=== PATIENT | male | born 1990 | race African-American/Black ===

== ENCOUNTER 2021-04-29 08:51 | Emergency (ER) | payer OTHER ==
[2021-04-29] MEDS ORDERED: METHYLPREDNISOLONE 125 MG INJ ONE (09:09)
--- NOTE | 2021-04-29 09:23 | EDPHYS ---
Physician Documentation [facility] Name: Thai Rendon Age: 31 yrs Sex: Male : 1990 Arrival Date: 04/29/2021 Time: 08:55 Bed 12 Private MD: Connie Crowell K ED Physician Link Delgado HPI: 04/29 09:18 This 31 yrs old Black Male presents to ER via Ambulatory with complaints of Rash - rn poison oak. 09:18 The patient's rash thought to be caused by Dermatitis. The rash is located on the body rn diffusely. The rash can be described as erythematous, vesicular. Onset: The symptoms/episode began/occurred 1 week(s) ago. Associated signs and symptoms: Pertinent positives: itching, Pertinent negatives: burning sensation, difficulty breathing, fever. Severity of symptoms: At their worst the symptoms were moderate in the emergency department the symptoms are unchanged. It is unknown whether or not the patient has had similar symptoms in the past. The patient has not recently seen a physician. Patient reports exposed to poison oak recently, has been trying [id number] stuff and ointments are not helping. No lesions in eyes or mouth. No shortness of breath. No other exposures that could explain allergic rash.. Historical: - Allergies: 08:59 No Known Allergies; aa5 - PMHx: 08:59 None; aa5 - PSHx: 08:59 None; aa5 - Immunization history:: Client reports receiving the 2nd dose of the Covid vaccine. - Social history:: Smoking status: Patient denies any tobacco usage or history of. - Family history:: not pertinent. - Hospitalizations: : No recent hospitalization is reported. ROS: 09:18 Constitutional: Negative for fever, chills, and weight loss, Eyes: Negative for injury, rn pain, redness, and discharge, Neck: Negative for injury, pain, and swelling, Cardiovascular: Negative for chest pain, palpitations, and edema, Respiratory: Negative for shortness of breath, cough, wheezing, and pleuritic chest pain, Abdomen/GI: Negative for abdominal pain, nausea, vomiting, diarrhea, and constipation, Back: Negative for injury and pain, MS/Extremity: Negative for injury and deformity, Skin: Positive for diffuse rash and itching Neuro: Negative for headache, weakness, numbness, tingling, and seizure. Exam: 09:18 Constitutional: This is a well developed, well nourished patient who is awake, alert, rn and in no acute distress. Head/Face: Normocephalic, atraumatic. Eyes: No lesions or swelling of eyes ENT: No oral lesions or stridor Skin: Warm, dry, diffuse vesicular and erythematous rash over torso and neck as well as extremities. No desquamation. No bullae Vital Signs: 08:58 BP 141 / 99; Pulse 85; Resp 18 S; Temp 98.5(TE); Pulse Ox 99% on R/A; Weight 94.35 kg aa5 (R); Height 5 ft. 8 in. (172.72 cm) (R); 08:58 Body Mass Index 31.63 (94.35 kg, 172.72 cm) aa5 MDM: 09:01 Patient medically screened. rn 09:18 Differential diagnosis: allergic reaction, Poison pooja, poison oak. Data reviewed: vital rn signs, nurses notes, and as a result, I will discharge patient. Counseling: I had a detailed discussion with the patient and/or guardian regarding: the historical points, exam findings, and any diagnostic results supporting the discharge/admit diagnosis, the need for outpatient follow up, to return to the emergency department if symptoms worsen or persist or if there are any questions or concerns that arise at home. Special discussion: I discussed with the patient/guardian in detail that at this point there is no indication for admission to the hospital. It is understood, however, that if the symptoms persist or worsen the patient needs to return immediately for re-evaluation. Administered Medications: 09:13 Drug: SOLU-Medrol (methylPREDNISolone sodium succinate) 125 mg Route: IM; Site: right iw gluteus; 09:30 Follow up: Response: No adverse reaction iw Disposition Summary: 04/29/21 09:22 Discharge Ordered Location: Home rn Problem: new rn Symptoms: have improved rn Condition: Stable rn Diagnosis - Irritant contact dermatitis due to plants, except food - Poison oak rn Followup: rn - With: Private Physician - When: As needed - Reason: Recheck today's complaints, Re-evaluation by your physician Discharge Instructions: - Discharge Summary Sheet rn - Contact Dermatitis rn - Poison [place] Dermatitis rn Forms: - Work release form iw - Medication Reconciliation Form rn - Thank You Letter rn - Antibiotic rn faculty - Prescription Opioid Use rn Prescriptions: - Prednisone 20 mg Oral Tablet - take 1 tablet by ORAL route as directed for 10 days Take 3 tablets by mouth rn daily for 5 days, followed by 2 tablets by mouth daily for 3 days, followed by 1 tablet by mouth daily for 2 days. Total of 10 days.; 23 tablet; Refills: 0, Product Selection Permitted - Hydroxyzine HCl 50 mg Oral Tablet - take 1 tablet by ORAL route every 8 hours As needed; 20 tablet; Refills: 0, rn Product Selection Permitted Signatures: Nevaeh Marina RN RN iw Link Delgado MD MD rn Calderon, Audri, RN RN aa5
--- NOTE | 2021-04-29 09:23 | ER ---
Nurse's Notes [facility] Name: Thai Rendon Age: 31 yrs Sex: Male : 1990 Arrival Date: 04/29/2021 Time: 08:55 Bed 12 Private MD: Connie Crowell K Diagnosis: Irritant contact dermatitis due to plants, except food-Poison oak Presentation: 04/29 08:58 Chief complaint: Patient states: "I got poison oak and it's all over". Coronavirus aa5 screen: At this time, the client does not indicate any symptoms associated with coronavirus-19. Ebola Screen: No symptoms or risks identified at this time. Initial Sepsis Screen: Does the patient meet any 2 criteria? No. Patient's initial sepsis screen is negative. Does the patient have a suspected source of infection? No. Patient's initial sepsis screen is negative. Risk Assessment: Do you want to hurt yourself or someone else? Patient reports no desire to harm self or others. Onset of symptoms was April 2021. 08:58 Method Of Arrival: Ambulatory aa5 08:58 Acuity: SARAH 5 aa5 Historical: - Allergies: 08:59 No Known Allergies; aa5 - PMHx: 08:59 None; aa5 - PSHx: 08:59 None; aa5 - Immunization history:: Client reports receiving the 2nd dose of the Covid vaccine. - Social history:: Smoking status: Patient denies any tobacco usage or history of. - Family history:: not pertinent. - Hospitalizations: : No recent hospitalization is reported. Screenin:15 Abuse screen: Denies threats or abuse. Denies injuries from another. Nutritional iw screening: No deficits noted. Tuberculosis screening: No symptoms or risk factors identified. Fall Risk None identified. Assessment: 09:14 General: Appears in no apparent distress. Behavior is calm, cooperative. Pain: Denies iw pain. Neuro: Level of Consciousness is awake, alert, obeys commands, Oriented to person, place, time, situation, Moves all extremities. Full function. Cardiovascular: Patient's skin is warm and dry. Respiratory: Respiratory effort is even, unlabored, Respiratory pattern is regular, symmetrical. Derm: Rash noted that is Reports itching. Musculoskeletal: Range of motion: intact in all extremities. Vital Signs: 08:58 BP 141 / 99; Pulse 85; Resp 18 S; Temp 98.5(TE); Pulse Ox 99% on R/A; Weight 94.35 kg aa5 (R); Height 5 ft. 8 in. (172.72 cm) (R); 08:58 Body Mass Index 31.63 (94.35 kg, 172.72 cm) aa5 ED Course: 08:55 Patient arrived in ED. am2 08:55 Connie Crowell MD is Private Physician. am2 08:58 Arm band placed on. aa5 08:59 Triage completed. aa5 09:01 Link Delgado MD is Attending Physician. rn 09:14 Nevaeh Marina RN is Primary Nurse. iw 09:16 No provider procedures requiring assistance completed. Patient did not have IV access iw during this emergency room visit. Administered Medications: 09:13 Drug: SOLU-Medrol (methylPREDNISolone sodium succinate) 125 mg Route: IM; Site: right iw gluteus; 09:30 Follow up: Response: No adverse reaction iw Outcome: 09:22 Discharge ordered by . rn 09:43 Patient left the ED. iw Signatures: Nevaeh Marina, RN RN iw Link Delgado MD MD rn Calderon, Audri RN RN aa5 Renae Miner am2 Corrections: (The following items were deleted from the chart) 09:01 08:58 94.35 kg Reported; Height 5 ft. 8 in. Reported; BMI: 31.6; aa5 aa5 09:03 08:58 Pulse 85bpm; Resp 18bpm; Spontaneous; Pulse Ox 99% RA; Temp 98.5F Temporal; 94.35 aa5 kg Reported; Height 5 ft. 8 in. Reported; BMI: 31.6; aa5
[2021-04-29 10:27] VITALS: BP 141/99; TEMP 98.5; O2SAT 99
--- OUTSIDE RECORDS SUMMARY | 2021-05-08 11:10 | XMS REPORT | Continuity of Care Document ---
:1990 Author Organization [facility] t Address [address] [place] [address] [place] [id number] Care Team Providers Name Role Phone Unavailable Unavailable Unavailable Problems This patient has no known problems. Allergies, Adverse Reactions, Alerts This patient has no known allergies or adverse reactions. Medications This patient has no known medications. Procedures This patient has no known procedures. Results This patient has no known results.
== END 2021-04-29 09:43 | disposition home or self-care (01) ==
LOC: ER 08:51
DX: L24.7 Irritant contact dermatitis due to plants, except food (principal)
CPT/HCPCS: 96372; 99282; J2930